=== PATIENT | male | born 1965 | race African-American/Black ===

== ENCOUNTER 2025-01-17 09:08 | Outpatient (CLI) | payer MEDICARE | END 2025-01-17 09:09 | disposition home or self-care (01) | LOC: CSHCT 09:08 | PROVIDERS: ATTEND Internal Medicine Hematology & Oncology | DX: Z12.2 Encounter for screening for malignant neoplasm of respiratory organs (principal); F17.210 Nicotine dependence, cigarettes, uncomplicated | CPT/HCPCS: 71271 ==